=== PATIENT | female | born 1995 | race Caucasian/White ===

== ENCOUNTER 2020-08-31 11:46 | Emergency (ER) | payer MEDICAID ==
[~2020-08-31] VITALS: Ht 160 cm; Wt 99.7 kg
[2020-08-31] MEDS ORDERED: IBUPROFEN 800MG TABLET PO ONE (12:00)
[2020-08-31] MEDS ORDERED: IBUP-2029 MT (13:23)
[2020-08-31 13:40] VITALS: BP 122/71
== END 2020-08-31 14:30 | disposition home or self-care (01) ==
LOC: ER 11:46
DX: S90.01XA Contusion of right ankle, initial encounter (principal); S90.31XA Contusion of right foot, initial encounter; X50.1XXA Overexertion from prolonged static or awkward postures, initial encounter; Y93.01 Activity, walking, marching and hiking; Y92.9 Unspecified place or not applicable
CPT/HCPCS: 73610; 73630; 99284